=== PATIENT | female | born 1975 | race Caucasian/White ===

== ENCOUNTER 2019-04-17 15:01 | Emergency (ER) | payer MEDICAID ==
[2019-04-17] MEDS ORDERED: 0.9 % SODIUM CHLORIDE 1,000 ML BAG IV ONE (15:22)
[2019-04-17] MEDS ORDERED: ONDANSETRON HCL IV 4 MG/2 ML VIAL IVP ONE (15:22)
--- NOTE | 2019-04-17 15:23 | Emergency Department Record ---
History of Present Illness - General Time Seen by Provider: 04/17/19 15:22 Source: Patient Mode of Arrival: Ambulatory Limitations: No limitations - History of Present Illness Initial comments: 43 yo female presents with 2 hours of nausea, vomiting, and diarrhea. No blood in the vomit or stool. She was picking strawberries for about one hour prior to the onset. No one else picking strawberries got sick to this point. No significant abdominal pain. No fever. She has been in her usual state of a [facility] recently. No known exposures. PCP is the [facility]. MD complaint: Diarrhea, Nausea, Vomiting -: Hour(s) Description of Vomiting: Watery Description of Diarrhea: Water Location: Other (No pain) Radiation: None Severity: Moderate Quality: Other Consistency: Constant Improves with: None Worsens with: None Context: Other Associated Symptoms: Other - Related Data Previous Rx's Medication Instructions Recorded Ondansetron [Zofran Odt] 4 mg PO Q8H #15 tab.rapdis 04/17/19 Allergies Allergy/AdvReac Type Severity Reaction Status Date / Time Sulfa (Sulfonamide Allergy Intermediate HIVES Verified 04/17/19 16:01 Antibiotics) Penicillins Allergy Mild HIVES Verified 04/17/19 16:01 Review of Systems Constitutional: Denies: Chills, Fever, Malaise, Weakness Eyes: Denies: Eye discharge ENT: Denies: Congestion, Throat pain Respiratory: Denies: Cough, Dyspnea, Wheezes Cardiovascular: Denies: Chest pain, Syncope Endocrine: Denies: Fatigue, Polydipsia, Polyuria Gastrointestinal: Reports: Diarrhea, Nausea, Vomiting. Denies: Abdominal pain, Constipation, Hematemesis, Hematochezia, Melena Genitourinary: Denies: Dysuria, Urgency Musculoskeletal: Denies: Joint swelling, Myalgia Skin: Denies: Bruising, Change in color, Rash Neurological: Denies: Headache, Numbness, Weakness Psychiatric: Denies: Anxiety Hematological/Lymphatic: Denies: Blood Clots, Easy bleeding, Easy bruising Physical Exam - General General Appearance: Alert, Oriented x3, Cooperative, No acute distress Limitations: No limitations - Head Head exam: Atraumatic, Normal inspection - Eye Eye exam: Normal appearance, PERRL. negative: Conjunctival injection, Scleral icterus - ENT ENT exam: Normal exam, Mucous membranes moist Ear exam: Normal external inspection Nasal Exam: Normal inspection Mouth exam: Normal external inspection - Neck Neck exam: Normal inspection - Respiratory Respiratory exam: Normal lung sounds bilaterally. negative: Respiratory distress - Cardiovascular Cardiovascular Exam: Regular rate, Normal rhythm, Normal heart sounds - GI/Abdominal GI/Abdominal exam: Soft, Normal bowel sounds. negative: Distended, Guarding, Rebound, Rigid, Tenderness - Rectal Rectal exam: Deferred - exam: Deferred - Extremities Extremities exam: Normal inspection. negative: Tenderness - Back Back exam: Denies: CVA tenderness (R), CVA tenderness (L) - Neurological Neurological exam: Alert, Oriented X3 - Psychiatric Psychiatric exam: Normal affect, Normal mood - Skin Skin exam: Dry, Intact, Normal color, Warm Course - Reevaluation(s) Reevaluation #1: 04/17/19 16:50 The labs results were reviewed There are no acute significant abnormalities of the CBC There are no acute significant abnormalities of the CMP 04/17/19 17:20 The patient is starting to feel much better. The nausea and vomiting are controlled We discussed the labs She is ready for DC. We discussed home care, reasons to return and close follow up if the symptoms do not resolve. Medical Decision Making - Lab Data Result diagrams: 04/17/19 16:15 04/17/19 16:15 Disposition Disposition: Discharge Clinical Impression: Vomiting and diarrhea Disposition: Home, Self-Care Condition: (1) Good Instructions: Gastroenteritis (ED) Additional Instructions: Call your doctor for the next available follow up appointment Review this ER visit and the tests performed with your family doctor Return to the ER for a recheck if worse, any new concerns or questions Take the prescriptions provided as directed Prescriptions: Ondansetron [Zofran Odt] 4 mg PO Q8H #15 tab.rapdis Time of Disposition: 17:22 Quality - Quality Measures Quality Measures: N/A - Blood Pressure Screening Does Patient Have Any of the Following: No Systolic Measurement: ~ Screening for High Blood Pressure: < Pre-Hypertensive BP, F/U Documented > [G8950] Pre-Hypertensive Follow-up Interventions: Referral to alternative/primary care provider.
[2019-04-17 16:22] LABS: HEMATOCRIT 40.3 % (35.0-47.0); HEMOGLOBIN 13.8 gm/dl (11.6-16.0); MEAN CELL VOLUME 83.8 fl (81-97); MEAN CORPUSCULAR HEMOGLOBIN 28.7 pg (27-33); MEAN CORPUSCULAR HGB CONC 34.2 g/dl (32-36); MEAN PLATELET VOLUME 8.6 fl (7.4-10.4); PLATELET COUNT 338 K/uL (130-400); RED BLOOD COUNT 4.81 M/uL (3.80-5.40); RED CELL DISTRIBUTION WIDTH 13.9 % (11.5-14.5); WHITE BLOOD COUNT W/O DIFF 11.9 K/uL (4.2-12.2)
[2019-04-17 16:32] LABS: BLOOD UREA NITROGEN 9 mg/dL (6-20); CREATININE 0.7 mg/dL (0.5-0.9); EST GLOMERULAR FILTRATION RATE > 60 mL/min
[2019-04-17 16:33] LABS: TOTAL PROTEIN 7.2 g/dL (6.6-8.7)
[2019-04-17 16:34] LABS: GLUCOSE,RANDOM 116 mg/dL (74-109)
[2019-04-17 16:36] LABS: ABSOLUTE NEUTROPHIL COUNT 9.19
[2019-04-17 16:37] LABS: ALB/GLOB RATIO 1.8 (1.1-1.8); ALBUMIN 4.6 g/dL (4.0-5.0); ALT/SGPT 37 U/L (<33); AST/SGOT 29 U/L (10.0-35.0)
[2019-04-17 16:38] LABS: ALKALINE PHOSPHATASE 55 U/L (35-104)
[2019-04-17] MEDS ORDERED: ONDANSETRON 4 MG ODT TABLET SL ONE (17:23)
== END 2019-04-17 17:48 | disposition home or self-care (01) ==
LOC: ER 15:01
DX: R11.2 Nausea with vomiting, unspecified (principal); R19.7 Diarrhea, unspecified
CPT/HCPCS: 80053; 85027; 96361; 96374; 99284; J2405; J7030